=== PATIENT | female | born 1995 | race Caucasian/White ===

== ENCOUNTER 2021-09-23 17:32 | Emergency (ER) | payer OTHER | END 2021-09-23 19:27 | disposition home or self-care (01) | LOC: VM.ED 17:32 | DX: S09.90XA Unspecified injury of head, initial encounter (principal); S40.211A Abrasion of right shoulder, initial encounter; S50.311A Abrasion of right elbow, initial encounter; S70.211A Abrasion, right hip, initial encounter; F17.210 Nicotine dependence, cigarettes, uncomplicated; V28.4XXA Motorcycle driver injured in noncollision transport accident in traffic accident, initial encounter; Y92.410 Unspecified street and highway as the place of occurrence of the external cause | CPT/HCPCS: 70450; 99284; 99284-25 ==

== ENCOUNTER 2021-11-06 09:27 | Emergency (ER) | payer OTHER | END 2021-11-06 10:40 | disposition home or self-care (01) | LOC: VM.ED 09:27 | DX: S20.211A Contusion of right front wall of thorax, initial encounter (principal); W01.198A Fall on same level from slipping, tripping and stumbling with subsequent striking against other object, initial encounter | CPT/HCPCS: 71046; 71100-RT; 99283 ==